=== PATIENT | female | born 1980 | race Two or more races ===

== ENCOUNTER 2023-06-05 11:12 | Emergency (ER) | payer MEDICAID ==
[~2023-06-05] VITALS: Ht 162.6 cm; Wt 57.2 kg
[2023-06-05] MEDS ORDERED: ETOMIDATE 2 MG/ML VIAL IV ONE (11:19)
[2023-06-05] MEDS ORDERED: ROCURONIUM BROMIDE 50 MG/5 ML IV ONE (11:19)
[2023-06-05] MEDS: LORAZEPAM INJ 2 MG/ML VIAL IV ONE (11:20)
[2023-06-05] MEDS ORDERED: LORAZEPAM INJ 2 MG/ML VIAL ONE (11:34)
[2023-06-05] MEDS ORDERED: APIX2.5T PO (12:10)
[2023-06-05] MEDS ORDERED: SEVE800T8 PO (12:10)
[2023-06-05] MEDS ORDERED: LABE200T5 PO (12:10)
[2023-06-05] MEDS ORDERED: CALC0.253 PO (12:10)
[2023-06-05] MEDS ORDERED: ASPI-1169 PO (12:10)
[2023-06-05] MEDS ORDERED: LOSA50TA39 PO (12:10)
[2023-06-05] MEDS ORDERED: CHOL100043 PO (12:10)
[2023-06-05] MEDS ORDERED: LEVE500T20 PO (12:10)
[2023-06-05] MEDS ORDERED: BUME2TAB7 PO (12:10)
[2023-06-05] MEDS ORDERED: SERT25TA PO (12:10)
[2023-06-05] MEDS ORDERED: HYDR-500 PO (12:10)
[2023-06-05] MEDS ORDERED: NIFE-34 PO (12:10)
[2023-06-05 12:13] LABS: BASOPHILS % (AUTO) 0.7 % (0.0-2.0); EOSINOPHILS # (AUTO) 0.5 K/uL (0.0-0.7); EOSINOPHILS % (AUTO) 8.5 % (0.0-6.0); HEMATOCRIT 32 % (33-45); HEMOGLOBIN 10.5 g/dL (11.5-14.8); LYMPHOCYTES % (AUTO) 17.6 % (20.0-44.0); MEAN CORPUSCULAR HEMOGLOBIN 28 PG (26.0-33.0); MEAN CORPUSCULAR HGB CONC 33 g/dl (31.0-36.0); MEAN CORPUSCULAR VOLUME 86 fL (82-100); MONOCYTES # (AUTO) 0.4 K/uL (0.1-1.30); MONOCYTES % (AUTO) 7.6 % (2.0-12.0); NEUTROPHILS # (AUTO) 3.8 K/uL (1.8-8.9); NEUTROPHILS % (AUTO) 65.6 % (43.0-81.0); PLATELET COUNT (AUTO) 208 K/uL (150-450); RED BLOOD CELL COUNT(AUTO) 3.72 MIL/uL (4.0-5.2); RED CELL DISTRIBUTION WIDTH 19.4 % (11.5-15.0); WHITE BLOOD COUNT (AUTO) 5.7 K/uL (4.3-11.0)
[2023-06-05] MEDS: LEVETIRACETAM (500MG) 1,000 MG in IV NS 0.9% 90 ML IV SCH (12:13)
[2023-06-05 12:31] LABS: LACTIC ACID 1.8 mmol/L (0.4-2.0)
[2023-06-05 12:37] LABS: ALBUMIN 3.7 g/dL (3.4-5.0); BILIRUBIN,DIRECT 0.1 mg/dL (0.0-0.2); BILIRUBIN,TOTAL 0.4 mg/dL (0.2-1.0); CALCIUM, SERUM 10.1 mg/dL (8.5-10.1); CREATININE 6.8 mg/dL (0.6-1.3); POTASSIUM 3.6 mmol/L (3.5-5.1); TOTAL PROTEIN, SERUM 7.3 g/dL (6.4-8.2)
[2023-06-05] MEDS: hydrALAZINE HCL IV 20 MG VIAL IV ONE (13:33)
[2023-06-05] MEDS ORDERED: hydrALAZINE HCL IV 20 MG VIAL ONE (13:33)
[2023-06-05] MEDS ORDERED: PROPOFOL 100 ML ONE (13:38)
[2023-06-05] MEDS: PROPOFOL 100 ML IV PRN (13:41)
[2023-06-05] MEDS: LACOSAMIDE 200 MG in IV NS 0.9% 100 ML IV ONE (14:09)
[2023-06-05] MEDS ORDERED: NICARDIPINE HCL 40 MG in IV NS 0.9% 184 ML IV PRN (14:30)
[2023-06-05] MEDS: NICARDIPINE IN NACL, ISO-OSM 200 ML IV PRN (14:46)
[2023-06-05] MEDS ORDERED: IV MANNITOL 20% 250 ML in PREMIX 1 EA IV PRN (15:00)
[2023-06-05] MEDS: IV MANNITOL 20% 500 ML in PREMIX 1 EA IV SCH (15:13)
[2023-06-05 16:53] VITALS: BP 146/90; TEMP 98.1; O2SAT 100
[2023-06-05] MEDS ORDERED: LACOSAMIDE 100 MG in IV NS 0.9% 50 ML IV SCH (21:00)
== END 2023-06-05 17:00 | disposition short-term general hospital (02) ==
LOC: ER 11:18
DX: I62.9 Nontraumatic intracranial hemorrhage, unspecified (principal); G40.901 Epilepsy, unspecified, not intractable, with status epilepticus; I16.0 Hypertensive urgency; I12.0 Hypertensive chronic kidney disease with stage 5 chronic kidney disease or end stage renal disease; N18.6 End stage renal disease; Z79.899 Other long term (current) drug therapy; Z20.822 Contact with and (suspected) exposure to COVID-19; Z88.1 Allergy status to other antibiotic agents
CPT/HCPCS: 99291; 31500; 96365; 96367; 70450; 71045 ×3; 96375; 87426; 85025; 80048; 83605; 80076; 36415; 93005; J2060; J0360; J7030 ×2; J3490 ×2; A4216; J1953; J2150; A4223 ×3